=== PATIENT | male | born 1970 | race African-American/Black ===

== ENCOUNTER 2022-01-09 09:24 | Outpatient (CLI) | payer OTHER, SELFPAY ==
--- NOTE | 2022-01-09 08:15 | DI.RAD_ITS ---
Exam(s) XR SHOULDER RT COMPLETE 2+V EXAM: XR SHOULDER RT COMPLETE 2+V CLINICAL HISTORY: right shoulder oain. TECHNIQUE: 2D digital imaging was performed. COMPARISON: No exams were available for comparison FINDINGS: Two views No evidence of fracture or dislocation or abnormal soft tissue calcifications. Subacromial space is not diminished. There are minimal degenerative changes In the glenohumeral joint. Bone density normal. No osseous lesions. IMPRESSION: As above. DATA REPOSITORY: RADIATION DOSE DELIVERED:
== END 2022-01-09 09:25 | disposition home or self-care (01) ==
LOC: DIORS 09:24
PROVIDERS: PCP Nurse Practitioner Family; Referring Provider Nurse Practitioner Family; Visit Provider Student in an Organized Health Care Education/Training Program
DX: M25.511 Pain in right shoulder (principal)
CPT/HCPCS: 73030

== ENCOUNTER 2022-01-31 02:49 | Outpatient (CLI) | payer OTHER, SELFPAY ==
--- NOTE | 2022-01-31 08:30 | DI.MRI_ITS ---
Exam(s) MR UPPER JOINT RT WO EXAM: MR UPPER JOINT RT WO CLINICAL HISTORY: R SHOULDER PAIN,INCOMPLETE TEAR RT ROTATOR CUFF, M25.511,M75.111. TECHNIQUE: Multiplanar multisequence MRI was performed. COMPARISON: CR XR SHOULDER RT COMPLETE 2+V from 01/09/2022 FINDINGS: BONES: There is no fracture or contusion pattern. JOINTS: Moderate degenerative changes are seen at the acromioclavicular joint. Mild subchondral cyst ic disease is seen in the humeral head. The glenohumeral joint is normal. TENDONS: Supraspinatus: There is a partial tear of the supraspinatus tendon at its insertion site onto the gre ater tuberosity. Infraspinatus: Unremarkable. Subscapularis: There is tendinosis of the subscapularis tendon. Teres Minor: Unremarkable. Biceps and [place]: Unremarkable. MUSCLES: Unremarkable. GLENOID LABRUM: Unremarkable on this noncontrast examination. SOFT TISSUES: Unremarkable. LIGAMENTS: Unremarkable. OTHER: Subacromial and subdeltoid bursae are unremarkable. IMPRESSION: 1. Partial tear of the supraspinatus tendon at its insertion site. 2. Subscapularis tendinosis. 3. Degenerative changes of the acromioclavicular joint and humeral head. DATA REPOSITORY:
== END 2022-01-31 03:09 ==
LOC: DI 02:50
PROVIDERS: PCP Nurse Practitioner Family; Visit Provider Student in an Organized Health Care Education/Training Program
DX: M75.31 Calcific tendinitis of right shoulder (principal); M19.011 Primary osteoarthritis, right shoulder; M75.101 Unspecified rotator cuff tear or rupture of right shoulder, not specified as traumatic
CPT/HCPCS: 73221

== ENCOUNTER 2022-09-09 04:22 | Outpatient (CLI) | payer OTHER, SELFPAY ==
[2022-09-09 14:45] LABS: Calculated LDL 81 mg/dL (<100); Cholesterol 145 mg/dL (<200); HDL Cholesterol 48 mg/dL (40-60); Triglyceride 81 mg/dL (<150)
== END 2022-09-09 04:23 | disposition home or self-care (01) ==
PROVIDERS: PCP Nurse Practitioner Family; Visit Provider Nurse Practitioner Family
DX: E78.5 Hyperlipidemia, unspecified (principal)
CPT/HCPCS: 36415; 80061

== ENCOUNTER 2023-04-29 14:30 | Outpatient (CLI) | payer OTHER, SELFPAY ==
--- NOTE | 2023-04-29 13:00 | DI.RAD_ITS ---
Exam(s) XR SHOULDER LT COMPLETE 2+V EXAM: XR SHOULDER LT COMPLETE 2+V CLINICAL HISTORY: LEFT SHOULDER PAIN. TECHNIQUE: 2D digital imaging was performed. Two views. COMPARISON: CR XR SHOULDER RT COMPLETE 2+V from 01/09/2022 FINDINGS: BONES: No acute fracture is present. No bony destructive lesion is seen. JOINTS: No dislocation present. Mild spurring at AC joint. Minimal spurring and margin of the gleno id. Glenohumeral joint space is maintained. Humeral head is normally positioned. SOFT TISSUE: Normal. IMPRESSION: Mild degenerative changes. DATA REPOSITORY: RADIATION DOSE DELIVERED:
== END 2023-04-29 14:31 | disposition home or self-care (01) ==
LOC: DIORS 14:31
PROVIDERS: PCP Nurse Practitioner Family; Visit Provider Student in an Organized Health Care Education/Training Program
DX: M25.512 Pain in left shoulder (principal)
CPT/HCPCS: 73030

== ENCOUNTER → 2023-05-07 01:00 | Outpatient (CLI) | payer OTHER, SELFPAY ==
--- NOTE | 2023-05-07 08:00 | DI.MRI_ITS ---
Exam(s) MR UPPER JOINT LT WO EXAM: MR UPPER JOINT LT WO CLINICAL HISTORY: L SHOULDER PAIN,SLAP TEAR,s43.432A. TECHNIQUE: Multiplanar multisequence MRI was performed. COMPARISON: Plain films May 17 FINDINGS: Exam is mildly limited by motion. BONES: There is no fracture or contusion pattern. JOINTS:The acromioclavicular joint shows mild degenerative changes. The glenohumeral joint is normal . TENDONS: Supraspinatus: Unremarkable. Infraspinatus: Unremarkable. Subscapularis: Unremarkable. Teres Minor: Unremarkable. Biceps and [place]: Significant edema seen in proximal long head of the biceps tendon without visible focal tear. MUSCLES: Unremarkable. GLENOID LABRUM: Abnormal signal in the superior labrum consistent with tear. SOFT TISSUES: Unremarkable. OTHER: Subacromial and subdeltoid bursae show small amount of fluid.. Small amount of fluid in subc oracoid bursa. IMPRESSION: Superior labral tear. Tendinosis the proximal biceps tendon. DATA REPOSITORY:
== END ==
PROVIDERS: PCP Nurse Practitioner Family; Visit Provider Student in an Organized Health Care Education/Training Program
DX: S43.432A Superior glenoid labrum lesion of left shoulder, initial encounter (principal); X58.XXXA Exposure to other specified factors, initial encounter
CPT/HCPCS: 73221

== ENCOUNTER 2023-08-07 09:59 | Day surgery (SDC) | payer OTHER, SELFPAY ==
[2023-08-07] VITALS (8 sets, daily range): BP systolic 89–135; BP diastolic 52–81; PULSE 56–70; RESP 11–16; TEMP 36.2–36.5; O2SAT 16–98; BMI 25.0
--- NOTE | 2023-08-07 07:16 | W.PM.DSUDISC ---
Date of service: 08/07/23 Time of Service: 15:00 Discharge Plan Disposition Patient Disposition: Home Condition: Stable Discharge Details Attending Provider: Jaime Ruiz Primary Care Provider: Shay Randhawa Home Meds and New Rx's Prescriptions: New naproxen 250 mg tablet 250 - 500 mg PO BID PRN (Reason: Moderate pain) Qty: 40 0RF oxycodone 5 mg tablet 5 - 10 mg PO Q4H PRN (Reason: Moderate to severe pain) Qty: 18 0RF Continued sumatriptan succinate 50 mg tablet See Rx Instructions PO .COMPLEX Qty: 10 3RF Rx Instructions: take 1 tab at onset of headache; if no relief may repeat 1 tab after at least 2 hrs; max = 4 tabs/24 hr PO pregabalin 50 mg capsule 50 mg PO BID Qty: 180 3RF tramadol 50 mg tablet 50 mg PO QID PRN (Reason: pain) Qty: 112 2RF propranolol 60 mg tablet 60 mg PO HS rosuvastatin 10 mg tablet 10 mg PO HS Discharge Instructions Additional Instructions: Surgery: Left shoulder arthroscopy with biceps tenodesis, extensive debridement (including capsular release), subacromial decompression, and manipulation under anesthesia. Activity: You should gradually increase range of motion motion and use of your shoulder. You may use your shoulder gently for light activities while protecting the biceps repair. Avoid any weighted elbow flexion or resisted supination for 6-8 weeks. No heavy lifting, reaching overhead, or lifting away from body for approximately 2-3 months. You may use the sling whenever you are out of the house for a few weeks. At home it is best to remove the sling and rest the arm on a pillow at your side or support the operative side with your other hand. A physical therapy prescription will be sent electronically to start in about 2 weeks. Prescriptions: Naproxen 250 mg take 1-2 every 12 hours with a meal as needed for moderate pain Oxycodone 5 mg take 1-2 every 4-6 hours as needed for severe pain You may use [id number]-ldvlclc Tylenol (acetaminophen) as needed for mild pain. These pain medications may be taken all at once or in different combinations as needed. Also, recommend Colace (docusate) as a stool softener as surgery and pain medicine cause constipation. You may try dqjl-cfa-kpossyn diphenhydramine (Benadryl) 25-50 mg nightly as a sleep aid Dressings: Remove shoulder bandage after 3 days. Leave the sticky Steri-Strips in place until they fall off or remove them after you shower. Cover the incisions with Band-Aids or leave them open to air. You may shower after 5 days. Follow-up: 10-[address] Ruiz You may take off the leg compression stockings this evening at home. You may also leave them on a few days longer if you have a history of leg swelling or edema. Let us know right away if you develop any redness, drainage, fevers, chest pain, or trouble breathing. Do not drink alcohol or drive for at least 24 hours after anesthesia. Please call the office during business hours with any questions or concerns. Discharge Orders Discharge Orders: Discharge Order (Routine); Ordered 08/07/23 Ordered By: Jaime Ruiz DS: Diagnosis Discharge Diagnosis (1) Superior labrum tkzkdyjr-qd-oszfliwhd (SLAP) tear of left shoulder: Status: Acute (2) Adhesive capsulitis of left shoulder: Status: Acute
--- NOTE | 2023-08-07 07:18 | ROE_ITS ---
Date of service: 08/07/23 Time of Service: 14:00 Operative Note Operative Note DATE OF PROCEDURE: 08/07/23 PRE-OP DIAGNOSIS: Left 1. SLAP tear 2. Adhesive capsulitis 3. Bursitis 4. Rotator cuff tendinopathy POST-OP DIAGNOSIS: same PROCEDURE: Left: 1. Arthroscopic biceps tenodesis, CPT# 71413. This involved arthroscopically suturing and reattaching the long head of the biceps tendon to the proximal humerus at the superior margin of the bicipital groove with a screw at the correct tension. 2. Extensive debridement, CPT# 26252. This involved using arthroscopic hand instruments, power instruments, and radiofrequency instruments to complete release of the anterior capsule, release long head of the biceps tendon and debride areas of SLAP tearing, posterior labral tearing, rotator interval synovitis, and chondromalacia about the biceps groove working within the glenohumeral joint anteriorly, superiorly and posteriorly as well as debriding mild bursal rotator cuff tearing. 3. Subacromial decompression with partial acromioplasty, CPT# 38184. This involved using arthroscopic power instruments and a radiofrequency wand to complete a bursectomy and smooth the undersurface of the acromion. 4. Manipulation under anesthesia, CPT #97313 The assistant professor of anthropology was medically required in order to help assist in techniques above, which require positioning the arm, holding the arthroscope, and manipulating multiple instruments and sutures at the same time. This cannot be done without the help of an experienced assistant professor of anthropology. SURGEON: Jaime Ruiz FIRE PREVENTION FORESTER: Suhas Wynn ANESTHESIA TYPE: Local By Surgeon, General LMA/ETT and Primary Nerve Block Refer to Anesthesia Record ESTIMATED BLOOD LOSS: 5 PATHOLOGY: none sent COMPLICATIONS: None Patient was transported to: PACU Patient's condition: stable Implants: Arthrex: 4.75mm SwiveLocks x 1 knotless Indications: The patient was diagnosed with the above conditions and appropriately indicated for surgical intervention. Please see complete medical record for details. Findings: Exam under anesthesia: Moderately restricted range of motion about 25 degrees to rotation and 115 degrees forward elevation with firm endpoints Glenohumeral joint: Significant hemorrhagic synovitis, likely from adhesive capsulitis and manipulation under anesthesia. Manipulation released the majority of the anterior capsule through inferiorly, no labral or rotator cuff damage. No real posterior capsule release done or needed. Intact subscapularis. Intact articular rotator cuff. Mild biceps groove anterior superior humeral head chondromalacia. Large redundant SLAP tear. Intact kimberly cular biceps tendon with positive inflammatory changes. Subacromial space: Moderate bursitis, mild thickness relatively diffuse bursal rotator cuff partial tearing. No significant acromial bone spur. Procedure Description: In the operating room, general anesthesia was induced. Bilateral shoulders were examined. The correct patient, procedure, and side of the procedure were all verified prior to beginning. The left shoulder was manipulated using a short lever arm and gradual to steady gentle pressure was used to perform the maneuver alternating between external rotation at the side, forward elevation, and abduction with internal and external rotation. Deliberately gradually and carefully excellent releases were felt in forward elevation and mauler releases and external rotation. No significant release release needed in abduction and internal rotation. Range of motion was then tested and about full. All endpoints were gently exaggerated. The shoulder joint remained stable. While the patient remained under anesthesia, all directions were stretched and repeated numerous times. The patient was positioned in the beachchair position. All bony prominences were well-padded. Preoperative antibiotics were administered. The shoulder was prepped and draped in the usual sterile fashion. Starting through the posterior portal a standard complete diagnostic arthroscopy was performed of the glenohumeral joint including inspection of the long head of the biceps, anterior and superior labrum, subscapularis tendon, supraspinatus and infraspinatus tendons, and axillary recess. The glenoid and humeral head cartilage as well as the posterior labrum were inspected from an anterior viewing portal. Significant findings and interventions noted above. Of note, the anterior capsular release from the manipulation was completed surgically using the radiofrequency wand and the ablator from inferior through the equator and the subscapularis and rotator interval opened up appropriately. An all-arthroscopic suprapectoral biceps tenodesis was performed through an anterior portal using a Loop N Tack method with a SutureTape FiberLink cinched around and through the tendon. The biceps was tenotomized from the labrum and fixated with a suture anchor at the superior margin of the bicipital groove. The extra knotless repair suture was then shuttled around the biceps tendon stump, back through the anchor eyelet, and tensioned adding additional fixation strength to the repair, which is tested with direct arm pressure and quite stable. Starting through the posterior portal, the arthroscope was directed into the subacromial space. A lateral 50 yard line lateral portal was created. A combination of power instruments and a radiofrequency ablator were used to debride bursitis anteriorly, posteriorly, and laterally as well as expose and smooth bone spurring on the undersurface of the acromion. The coracoacromial ligament was partially released. The bursectomy was completed viewing laterally and working from posteriorly and the rotator cuff was thoroughly inspected with findings noted above. There was mild diffuse bursal rotator cuff fraying and slight more medially tearing, which was debrided lightly with the mechanical shaver. The shoulder was drained of arthroscopic fluid. All portal sites were copiously irrigated. These incisions were closed using 3-0 Monocryl in a buried fashion and then covered with Mastisol, Steri-Strips, Xeroform, dry gauze, and ABDs. The dressings were covered and secured with Medipore tape. The operative extremity was placed into a sling for immobilization. The patient awoke from anesthesia without complication and was transferred to the recovery room in a stable condition.
--- NOTE | 2023-08-07 11:08 | W.ANESPRE ---
General Info Date of Service Date Performed: 08/07/23 Height: 5 ft 9 in Weight: 77 kg Body Mass Index (BMI): 25.0 Surgical Procedure: Operation Date: 08/07/23 12:40 Proposed Procedure Side Surgeon p Shoulder Arthroscopy w/Extensive Debridement (including Capsular Release), Open VS Arthroscopic Biceps Tenodesis, Subacromial Decompression Left Jaime Ruiz MD s Shoulder Manipulation Left Jaime Ruiz MD Meds Allergies and Home Medications Allergies Allergy/AdvReac Type Severity Reaction Status Date / Time pramipexole [From Mirapex] AdvReac Headache Verified 08/07/23 10:55 Home Medication Medication Instructions Recorded sumatriptan succinate 50 mg tablet See Rx Instructions PO .COMPLEX 10/25/21 #10 tabs pregabalin 50 mg capsule 50 mg PO BID #180 caps 03/13/23 tramadol 50 mg tablet 50 mg PO QID PRN pain #112 tabs 06/02/23 propranolol 60 mg tablet 60 mg PO HS 08/07/23 rosuvastatin 10 mg tablet 10 mg PO HS 08/07/23 Current Visit Medications: Current Medications Generic Name Dose Route Start Last Admin Trade Name Freq PRN Reason Stop Dose Admin Acetaminophen 1,000 mg 08/07/23 07:15 Acetaminophen 500 Mg Tab PO 09/06/23 07:14 Q6H PRN PRN Ringer's Solution 1,000 mls @ 30 mls/hr 08/07/23 06:00 IV 08/07/23 23:59 INFUSION NETO Cefazolin Sodium/Dextrose 2 gm in 50 mls @ 100 mls/hr 08/07/23 06:00 Ancef Duplex IVPB 08/07/23 23:59 PREOP NETO Tranexamic Acid/Sodium Chloride 1,000 mg in 100 mls @ 600 mls/hr 08/07/23 06:00 IVPB 08/07/23 23:59 PREOP NETO IV Miscellaneous Supplies 1 each 08/07/23 06:00 Iv Access IV 08/07/23 23:59 DIRECTED NETO Naproxen 250 - 500 mg 08/07/23 07:15 Naproxen 500 Mg Tab PO 09/06/23 07:14 BID PRN PRN Oxycodone HCl 0 mg 08/07/23 07:15 Oxycodone 5 Mg Tab PO 09/06/23 07:14 Q3H PRN PRN Pain Sodium Chloride 0 ml 08/07/23 06:00 Normal Saline Flush 10 Ml Syr IV 08/07/23 23:59 PRN PRN Sodium Chloride 0 ml 08/07/23 06:00 Normal Saline 10 Ml Vial IJ 08/07/23 23:59 DIRECTED PRN Sterile Water 0 ml 08/07/23 06:00 Water,Injection,Sterile 10 Ml Vial IJ 08/07/23 23:59 DIRECTED PRN PFSH Active Problems Active Problems: Problem Status Onset Code Adhesive capsulitis of left shoulder M75.02 Superior labrum fgkstbgr-yi-fpqlwcbzv (SLAP) tear of left shoulder ~02/2023 S43.432A Hyperhidrosis R61 Tendinitis of long head of biceps brachii of right shoulder M75.21 Superior labrum wcczgpgj-be-lhtavygls (SLAP) tear of right shoulder S43.431A Urinary hesitancy R39.11 Stress reaction, emotional F43.9 Peripheral neuropathy G62.9 Pain in joint of right shoulder M25.511 Nicotine dependence F17.200 Eczema, allergic L23.9 Classic migraine with aura G43.109 Hyperlipemia E78.5 Neuropathy G62.9 Medical History Medical History (Updated 05/14/23 @ 11:12 by Dorcas Morley RN) Persistent testicular pain Lymphadenopathy, supraclavicular Lymphadenopathy, submandibular Inguinal lymphadenopathy Obesity ED (erectile dysfunction) of organic origin Surgical History Surgical History (Updated 08/05/23 @ 12:45 by Lali Bran RN) History of bunionectomy History of surgical procedure partial plantar fasciectomy History of orchiectomy Tobacco Smoking/Tobacco Use Status: Current-Occasional Tobacco Type: cigarettes Passive smoking exposure: Yes Second hand exposure: Yes Alcohol Alcohol Intake: current Alcohol intake frequency: holidays/special occasions only Alcohol type: beer and wine Substance Use Substance use: Never Substance use type: does not use Vital Signs and Lab Results Vital Signs Most Recent Vital Signs in EMR: Temp Pulse Resp BP Pulse Ox 36.3 C L 59 L 16 135/78 16 L 08/07/23 11:06 08/07/23 11:06 08/07/23 11:06 08/07/23 11:06 08/07/23 11:06 Lab Results Blood Type / Crossmatch: No Data to Display Complete Blood Count: No Data to Display Complete Metabolic Panel: No Data to Display Liver Function Panel: No Data to Display Coagulation Panel: No Data to Display Cardiac Panel: No Data to Display Arterial Blood Gas: No Data to Display Venous Blood Gas: No Data to Display Pancreas Panel: No Data to Display Thyroid Panel: No Data to Display Infectious Disease: No Data to Display Blood Cultures: No Data to Display Toxicology Panel: No Data to Display Anesthesia Assessment and Plan Anesthesia History Personal History: No History of Anesthesia Complications Family History: No Family History of Anesthesia Complications Exercise Tolerance Exercise Tolerance: Metabolic Equivalents>4 Cardiac & Pulmonary Exam Cardiac Exam: Normal S1/S2 Heart Sounds Pulmonary Exam: Clear Bilateral Breath Sounds Implantable Cardiac Device Does patient have a Pacemaker or an ICD?: No Airway Exam Known Difficult Airway: No Mallampati Class: 3 Mouth Opening: Normal (> 3cm) Thyromental Distance: Greater than 3 cm Neck Range of Motion: Full ROM Neck Circumference: Normal Teeth Condition: Normal Dentition ASA Classification ASA Score: ASA 2 Emergency Case?: No NPO Status NPO Status: NPO Clears >2 hours, Solids >8 hours Anesthesia Plan Resuscitation Status: Full Code Anesthesia Technique: General Anesthesia Airway Planned: Endotracheal Tube Pain Management: Surgeon and patient request nerve block Monitors Used: Standard Monitors Preoperative Comments:: 53 yo male for shoulder scope. Sig PMHx: peripheral neuropathy, migraines, smoker, occ EtOH.
[2023-08-07] MEDS: Lactated Ringers 1,000 ML 30 ML IV (12:00)
--- NOTE | 2023-08-07 13:10 | W.ANESNERVE ---
Nerve Block Single Injection Procedure Date and Time Date Performed: 08/07/23 Procedure Start: 12:10 Location Where Procedure Performed Procedure Location: Day Surgery Unit Reason Performed: Postoperative Analgesia Requesting Provider: Jaime Ruiz Timeout Performed Timeout Performed: Yes Monitoring Used ECG, Blood Pressure and SpO2 Sterility Sterility: Hand Hygiene, Surgical Cap, Surgical Mask, Sterile Gloves and Chlorhexidine Sedation Given During Procedure Sedation Given (Indicate Dose Given): Versed IV Dose:: 2 mg Patient Mental Status Patient Mental Status: Sedate with meaningful communication Nerve Block 1st Nerve Block: Laterality: Left Block Type: Interscalene Ultrasound Image Saved?: Yes Needle / Catheter Used: 100mm SonoPlex II Local Anesthetic Bolus (Indicate Dose Given): Lidocaine used for local infiltration of skin, Bupivacaine 0.5% Dose:: 10 mL and Exparel Dose:: 10 mL Additives (Indicate Dose Given): None Ultrasound: Sterile probe cover and gel used Nerve Stimulator: Supplement to Ultrasound use and No twitch or parasthesia noted < 0.5 mA Paresthesia: None Procedure Tolerated: No Complications Procedure Outcome: Successful Performed By: Albert Lawson
[2023-08-07] MEDS: ceFAZolin 2 GM/50 ML BAG IVPB (13:35)
[2023-08-07] MEDS: TRANEXAMIC ACID/SOD. CHL. 1,000 MG/100 ML BAG 600 MG IVPB (13:40)
[2023-08-07] MEDS: Bupivacaine 0.25% Pres-Free W/EPI 30 ML VIAL (14:37)
--- NOTE | 2023-08-07 16:05 | W.ANESPOSTOP ---
Postoperative Evaluation Date, Time and Location Date Performed: 08/07/23 Time Performed: 16:05 Patient Location: Day Surgery Unit Vital Signs Most Recent Imported Vital Signs: Most Recent Vital Signs Temp Pulse Resp BP Pulse Ox 36.5 C 67 12 101/57 L 97 08/07/23 15:46 08/07/23 15:46 08/07/23 15:46 08/07/23 15:46 08/07/23 15:46 Pain Score Most Recent Pain Score: Most Recent Pain Score Pain Level 0 08/07/23 15:46 Assessment Mental Status: Awake (Alert & Oriented to Patient Baseline) Airway and Respiratory Function: Patent airway with normal (patient baseline) respiratory exam Cardiovascular Function: Hemodynamically Stable Hydration Status: Adequately Hydrated Nausea & Vomiting: No Nausea or Vomiting Pain: Pain is tolerable per patient Peripheral Nerve Block: Regional nerve block not resolved at time of post operative discharge
== END 2023-08-07 16:55 | disposition home or self-care (01) ==
LOC: SUR 09:59
PROVIDERS: PCP Nurse Practitioner Family; Visit Provider Student in an Organized Health Care Education/Training Program
PROC: (CPT 29805; principal; 2023-08-07 12:30)
PROC: (CPT 23700; 2023-08-07 12:30)
DX: S43.432A Superior glenoid labrum lesion of left shoulder, initial encounter (principal); M75.02 Adhesive capsulitis of left shoulder; X58.XXXA Exposure to other specified factors, initial encounter; F17.210 Nicotine dependence, cigarettes, uncomplicated; G62.9 Polyneuropathy, unspecified
CPT/HCPCS: 29828; 29823; 29826; 23700; 76942; C9290; J0665; J0690; J1100; J2250; J2405; J2704

== ENCOUNTER 2024-02-10 15:19 | Outpatient (REF) | payer OTHER, SELFPAY ==
--- NOTE | 2024-02-10 14:00 | ORMUBX_PTH ---
PATIENT: Noe Krause LOC: [facility] U#:[id number] AGE/SX: 54/M ROOM: RE02/10/[address]: Cheryl Watters : 1970 BED: DIS: 02/10/2024 SPEC #: [id number] RECD: 02/11/24 12:43 STATUS: CRIS REKyra #: [id number] GHASSAN: 02/10/24 14:[address]: Cheryl Watters DEPT: Surgical Specimen RECD BY: Abby Salgado ENTERED: 02/11/24 12:44 SP TYPE: ORMUBX OTHR DR: Shay Randhawa, DAVID Tissues: 1 - MUCOSA, NOS Procedures: GROSS AND MICRO LEVEL 4 Comments: [id number]
== END 2024-02-10 15:20 | disposition home or self-care (01) ==
LOC: NCHCN 15:19
PROVIDERS: PCP Nurse Practitioner Family; Visit Provider Registered Nurse Maternal Newborn
DX: K13.70 Unspecified lesions of oral mucosa (principal)
CPT/HCPCS: 88305

== ENCOUNTER 2024-03-05 01:16 | Outpatient (CLI) | payer OTHER, SELFPAY ==
[2024-03-05 13:34] LABS: Abs Immature Grans 0.02 10^3/uL (0.0-0.06); Absolute Basophil Count 0.05 10^3/uL (0.0-0.2); Absolute Eosinophil Count 0.19 10^3/uL (0.0-0.7); Absolute Lymphocyte Count 3.51 10^3/uL (1.2-3.4); Absolute Monocyte Count 0.54 10^3/uL (0.1-0.8); Absolute Neutrophil Count 3.53 10^3/uL (1.2-6.7); Basophils % 0.6 %; Eosinophils % 2.4 %; HCT 38.8 % (40.0-50.0); HGB 12.7 g/dL (13.5-17.5); Immature Grans % 0.3 %; Lymphocytes % 44.8 %; MCH 30.8 pg (27.0-33.0); MCHC 32.7 % (32.0-36.0); MCV 94 fL (80-95); MPV 10.9 fL (8.0-11.0); Monocytes % 6.9 %; Platelet Count 218 10^3/uL (130-400); RBC 4.12 10^6/uL (4.36-5.78); RDW 14.5 % (11.8-14.1); RDW-SD 50.4 fL; WBC 7.84 10^3/uL (4.4-10.8)
[2024-03-05 14:15] LABS: Ferritin 198 ng/mL (26-388); TSH (W/Ref FT4) 1.33 uIU/mL (0.36-3.74); Vitamin B12 826 pg/mL (193-986); Vitamin D 25 Total 19.4 ng/mL (30-100)
[2024-03-05 14:30] LABS: Iron 77 ug/dL (65-175); Total Iron Binding Capacity 279 ug/dL (250-450)
[2024-03-05 23:32] LABS: HIV-1/2 Ag & Ab Screen Negative (Negative)
[2024-03-08 10:43] LABS: Transferrin 228 mg/dL (201-352)
[2024-03-08 11:45] LABS: Syphilis Serology (RPR) Negative (Negative)
[2024-03-12 12:21] LABS: Testosterone, Free 7.91 ng/dL (3.87-14.7); Testosterone, Total 278 ng/dL (240-950)
== END 2024-03-05 01:17 | disposition home or self-care (01) ==
PROVIDERS: PCP Nurse Practitioner Family; Visit Provider Nurse Practitioner Family
DX: R23.1 Pallor (principal); R23.2 Flushing
CPT/HCPCS: 36415; 82306; 84402; 84403; 87389; 82607; 82728; 83540; 83550; 84443; 84466; 85025; 86592

== ENCOUNTER 2024-12-28 07:55 | Outpatient (REF) | payer BC, SELFPAY ==
--- NOTE | 2024-12-28 07:30 | LIPBX_PTH ---
PATIENT: Noe Krause LOC: [facility] U#:[id number] AGE/SX: 54/M ROOM: RE12/28/[address]: Elias Rueda MD : 1970 BED: DIS: 12/28/2024 SPEC #: [id number] RECD: 12/28/24 17:27 STATUS: CRIS REQ #: [id number] GHASSAN: 12/28/24 07:[address]: Elias Rueda DEPT: Surgical Specimen RECD BY: Abby Salgado ENTERED: 12/28/24 17:28 SP TYPE: LIPBX OTHR DR: Shay Randhawa, DAVID Tissues: 1 - LIP BIOPSY/RESECTION Procedures: GROSS AND MICRO LEVEL 4 Comments: [id number]
== END 2024-12-28 07:56 | disposition home or self-care (01) ==
LOC: LBN 07:55
PROVIDERS: PCP Nurse Practitioner Family; Visit Provider Otolaryngology
DX: L83 Acanthosis nigricans (principal)
CPT/HCPCS: 88305

== ENCOUNTER 2025-02-22 15:37 | Outpatient (CLI) | payer BC, SELFPAY ==
--- NOTE | 2025-02-22 14:37 | DI.RAD_ITS ---
Exam(s) XR KNEE LT 1V XR STANDING ALIGNMENT EXAM: XR STANDING ALIGNMENT and XR knee LT 1 V CLINICAL HISTORY: OA L KNEE. TECHNIQUE: 2D digital imaging was performed. Five images were obtained. COMPARISON: MR MRI, LOWER EXT. JOINT S/ CONTRA from 11/23/2024 CR XR KNEE LT 1V from 02/22/2025 FINDINGS: BONES: There are degenerative changes seen in the hips bilaterally characterized by asymmetric joint space narrowing and osteophytes. The right knee is well maintained. There is a well corticated osseous density adjacent to the medial femoral condyle which is old and may reflect prior trauma. In the left knee, there is mild narrowing of the medial joint compartment. The joint spaces are otherwise well maintained. No joint effusion is seen. The ankles are well maintained.There is no significant leg length discrepancy. SOFT TISSUE: Atherosclerotic calcification is present. IMPRESSION: Mild medial compartment joint space narrowing of the left knee. DATA REPOSITORY: RADIATION DOSE DELIVERED:
== END 2025-02-22 15:38 | disposition home or self-care (01) ==
LOC: DIORS 15:37
PROVIDERS: PCP Nurse Practitioner Family; Visit Provider Student in an Organized Health Care Education/Training Program
DX: M17.12 Unilateral primary osteoarthritis, left knee (principal)
CPT/HCPCS: 73560; 77073